=== PATIENT | female | born 1975 | race Caucasian/White ===

== ENCOUNTER 2024-02-24 08:56 | Outpatient (OUT) | payer OTHER, SELFPAY | END 2024-02-24 08:57 | disposition home or self-care (01) | LOC: SLEEP 08:56 | DX: G47.33 Obstructive sleep apnea (adult) (pediatric) (principal) | CPT/HCPCS: 95806 ==

== ENCOUNTER 2024-04-06 07:00 | Outpatient (OUT) | payer OTHER, SELFPAY ==
--- OUTSIDE RECORDS SUMMARY | 2024-04-06 16:45 | XMS_ITS | CCD ---
Author Organization [facility] Care Team Providers Care Guest Service Aide Name Role Phone Yee Weber Unavailable Unavailable Yee Weber Unavailable Unavailable Yee Weber Unavailable Unavailable Vero Dowd Unavailable MD Gabby Rivera Attending Provider MD [facility] Primary Care Provider MD Gabby Rivera Attending Provider MD [facility] Primary Care Provider Carolina King Primary [facility] Unavailable Gabby Rivera Attending Unavailable Gabby Rivera Admitting Unavailable Carolina King Primary [facility] Unavailable Gabby Rivera Attending Unavailable Gabby Rivera Admitting Unavailable WINSOME HANNAH Attending Unavailable WINSOME HANNAH Attending Unavailable WINSOME HANNAH Attending Unavailable WINSOME HANNAH Referring Unavailable NICOLE XIE Attending Unavailable WINSOME HANNAH Referring Unavailable WINSOME HANNAH Attending Unavailable Allergies Allergy Classification Reported Allergen(s) Allergy Type Date of Onset Reaction(s) Facility (1 source) Cephalexin Drug Allergy hives [facility] Other (3 sources) Clarithromycin Drug Allergy 3 vomiting [facility] (1 source) HYDROcodone / Ibuprofen Drug Allergy vomiting [facility] Other (1 source) Penicillin Drug Allergy vomiting [facility] Other (1 source) Bee Sting Drug allergy anaphylaxis [facility] Other (3 sources) HYDROcodone; Translations: [hydrocodone] Drug Allergy 3 redness of face [facility] (2 sources) Cephalexin; Translations: [cephalexin] Drug Allergy [address] [facility] (1 source) Clarithromycin Drug Allergy [address] [facility] Repository Medications Current Medications Medication Drug Class(es) Dates Sig (Normalized) Sig (Original) albuterol 0.83 mg/ml inhalation solution (6 sources) beta2-Adrenergic Agonist Start: 12-24-2022 Albuterol Sulfate Active 2.5 MG CNTNEBULIZ EVERY 4-6 HOURS December 24, 2022 1:00am Start: 12-24-2022 take 1 puff(s) by in halation every four to six hours Albuterol Sulfate Active 2 PUFF INHALATION EVERY 4-6 HOURS December 24, 2022 1:00am Start: 10-27-2022 Albuterol Sulf ate (2.5 MG/3ML) 0.083% 3 ml as needed Inhalation 4 times a day prn Oct, Active Start: 10-27-2022 take 2 puff(s) by in halation four times daily as needed Albuterol Sulfate HFA 108 (90 Base) MCG/ACT 2 puffs Inhalation 4 times a day prn Oct, Active benzonatate 100 mg oral capsule (1 source) Non-narcotic Antitussive Start: 10-27-2022 take 1 capsule by mouth every eight hours Tessalon Perles 100 MG 1 capsule as needed Orally Three times a day for 10 day(s) Oct, Active Elderberry Gummy (2 sources) Start: 12-24-2022 take 1 tablet by mouth once daily Elderberry Gummy Active 1 TAB PO Daily December 24, 2022 1:00am Start: 12-24-2022 take 1 tablet by valencia th once daily Elderberry Gummy Active 1 TAB PO Daily December 24, 2022 12:00am ibuprofen 600 mg oral tablet (1 source) Nonsteroidal Anti-inflammatory Drug Start: 01-07-2023 take 600 mg by mouth every six hours Ibuprofen Active 600 MG PO Q6H 30 January 07, 2023 12:00am predniSONE 20 mg oral tablet (1 source) Start: 10-27-2022 take 1 tablet by mouth every twelve hours predniSONE 20 MG 1 tablet Orally 2 times a day for 5 day(s) Oct, Active traMADol hydrochloride 50 mg oral tablet (1 source) Opioid Agonist Start: 01-07-2023 take 50 mg by mouth every six hours Tramadol Active 50 MG PO Q6H 30 7 January 07, 2023 12:00am Vitamin C Gummy (2 sources) Start: 12-24-2022 take 1 tablet by mouth once daily Vitamin C Gummy Active 1 TAB PO Daily December 24, 2022 1:00am Start: 12-24-2022 take 1 tablet by mouth once da gilmer Vitamin C Gummy Active 1 TAB PO Daily December 24, 2022 12:00am Problems Problem Classification Problem Date Documented Date Episodic/Chronic Chronic obstructive pulmonary disease and bronchiectasis (1 source) Bronchitis, not specified as acute or chronic Episodic Immunizations and screening for infectious disease (2 sources) Contact with and (suspected) exposure to other viral communicable diseases; Translations: [Contact with and (suspected) exposure to other viral communicable diseases] Episodic Menstrual disorders (1 source) Excessive and frequent menstruation with regular cycle; Translations: [Excessive and frequent menstruation with regular cycle] Onset: 01-07-2023 Chronic Other nervous system disorders (1 source) Acute postoperative pain; Translations: [Other acute postprocedural pain] 01-07-2023 Episodic Unclassified (1 source) Encounter for preprocedural laboratory examination; Translations: [Encounter for preprocedural laboratory examination] Onset: 12-24-2022 Results Test Name Value Interpretation Reference Range Facility BI MAMMOGRAM SCREENING TOMOS YDAVIDIS BILATERALon 02-14-2024 BI MAMMOGRAM SCREENING TOMOSYNTHESIS BILATERAL This is a summary report. The complete report is available in the patient's medical record. If you cannot access the medical record, please contact the sending organization for a detailed fax or copy. EXAMINATION: BI MAMMOGRAM SCREENING TOMOSYNTHESIS BILATERAL CLINICAL HISTORY:screening COMPARISON: December 26, 2022. RESULT: Digital mammography and 3D tomosynthesis of bilateral breasts was performed. Density: Scattered fibroglandular density [2] Overall appearance is stable. There is no suspicious mass, asymmetry, architectural distortion, or calcification IMPRESSION: BIRADS 1 - Negative Follow-up: Routine Screening Mamm Board Certified Radiologists. Accredited by the ACR and FDA. MAMMOGRAPHY IS VERY IMPORTANT TO YOUR HEALTH. THE [employer] GUIDELINES RECOMMEND THAT WOMEN 40 YEARS OF AGE AND OLDER SHOULD HAVE A MAMMOGRAM EVERY YEAR. A REMINDER LETTER WILL BE SENT AT THE APPROPRIATE TIME. THIS FACILITY UTILIZES A REMINDER SYSTEM TO ENSURE ALL PATIENTS RECEIVE REMINDER NOTIFICATIONS AT THE APPROPRIATE TIME BASED ON THE RECOMMENDATIONS OF THIS EXAM. THIS INCLUDES REMINDERS FOR ROUTINE SCREENING MAMMOGRAMS, DIAGNOSTIC MAMMOGRAMS IN WHICH THE PATIENT IS ASKED TO RETURN FOR ADDITIONAL VIEWS, OR OTHER BREAST IMAGING INTERVENTIONS WHEN APPROPRIATE. THE PATIENT WILL BE PLACED IN THE APPROPRIATE REMINDER SYSTEM INCLUDING A REMINDER AT THE APPROPRIATE TIME FOR ANY PENDING ADDITIONAL VIEWS. TRANSCRIBED BY: ELECTRONICALLY SIGNED BY: Harry Sy MD Normal Not Available HCG ( test) IA.ana d Ql (U)Ordered By: Mack Ortiz on 01-07-2023 HCG ( test) Ql (U) Negative [facility] HCG,Urineon 01-07-2023 Beta HCG ( test) Ql (U) Negative Normal [facility] Comment on above: Result Comment: PERF ORMED BY: [place] [address] PATHOLOGIST ASSOCIATE PROFESSOR OF LIBRARY MEDIA KAI HOPKINS M.D. Performed By: #### U HCG #### [address] 01-07-2023 L - -------- Specimen: [id number] Received: 01/07/23 Status: PHILIP Viraj Num: [id number] Spec Type: Surgical Subm Dr: GABBY RIVERA MD Tissues: A Uterus w/ or w/o tubes ovaries except neoplastic or prolap (UTERUS/FALLOLP Procedures: , Gross/Micro L5 -------- Age/ Patient Sex Location Account Attending Physician -------- Janeen Hermosillo 47/F [place] [id number] GABBY RIVERA MD -------- SPEC NUM: [id number] RECD: 01/07/23 STATUS: PHILIP ACKERMANAlee NUM: [id number] GASOTN: 01/07/[address] [facility] [address]: GABBY RIVERA MD ENTERED: 01/07/[address] [facility] [address]: LUBNA TYPE: Surgical DEPT: S ORDERED: , Gross/Micro L5 ORDERED: , Gross/Micro L5 Pathological Diagnosis Uterus and fallopian tubes, hysterectomy with bilateral salpingectomy: - Minimal chronic cervicitis. - Secretory phase endometrium. - Adenomyosis. - Subserosal leiomyomata of uterus. - Fallopian tube segments with changes consistent with ligation, paratubal cyst. Clinical Information Menorrhagia, dysmenorrhea Gross Description Received in formalin labeled with the patient's name, number and uterus and fallopian tubes is a 100 g 90.3 x 6.2 x 5.5 cm nodularly distorted uterus with attached bilateral fallopian tube stumps, detached fimbriae and a detached tubular structure. The uterine serosa is durand pink, focally umbilicated at the lower uterine segment. The exocervix is durand- pink with a central 0.7 cm patent os. The endocervix is durand red, glistening. There is a 0.5 cm linear umbilication in the anterior lower uterine segment consistent with site of previous . The durand-red endometrium averages 0.2 cm in thickness. The pink-durand, trabecular myometrium measures up to 2.0 cm in thickness and contains two sub-serosal nodules with white, whorled cut surfaces measuring up to 2.3 cm. Additionally there is intraparenchymal cystic change identified. The right fallopian tube stump measures 1.0 x 0.7 x 0.7 cm and has a dilated lumen consistent with previous ligation. The left fallopian tube stump measures 2.0 x 0.8 x 0.8 cm and has a dilated lumen containing clear, colorless -------- Specimen: [id number] Received: 01/07/23 Status: PHILIP Ackermanalee Num: [id number] Spec Type: Surgical Subm Dr: GABBY RIVERA MD Tissues: A Uterus w/ or w/o tubes ovaries except neoplastic or prolap (UTERUS/FALLOLP Procedures: , Gross/Micro L5 -------- Patient: Janeen Hermosillo [id number] (Continued) -------- Specimen: Received: 01/07/23 (Continued) Gross Description (Continued) Signed (signature on file) Tj Hudson MD 01/08/23 1339 -------- Specimen: Received: 01/07/23 Status: PHILIP Cali Num: [id number] Spec Type: Surgical Subm Dr: GABBY RIVERA MD Tissues: A Uterus w/ or w/o tubes ovaries except neoplastic or prolap (UTERUS/FALLOLP Procedures: , Gross/Micro L5 -------- Patient: Janeen Hermosillo [id number] (Continued) -------- Specimen: Received: 01/07/23 (Continued) Gross Description (Continued) fluid consistent with previous ligation. One detached fimbriated tissue measures 3.0 x 1.8 x 0.7 cm and has a patent lumen on cut section. The second detached fimbriated tissue measures 2.3 x 1.7 x 0.7 cm and appears to have a patent lumen on cut section. The durand-pink tubular detached tissue measures 4.5 x 0.7 x 0.7 cm and has an attached 1.0 cm smooth- walled, clear fluid-filled cyst. Sectioning reveals a patent lumen. Learning Program Manager sections are submitted in 11 cassettes as follows: A1 - Anterior cervix A2 - Posterior cervix A3 - Anterior lower uterine segment A4 - Anterior endomyometrium A5 - Posterior endomyometrium A6 - Subserosal nodules A7 - Right fallopian tube stump A8 - Left fallopian tube stump A9-A10 - Fimbriated tissues in their entirety A11 - Detached tubular tissue Microscopic Description 11 glass slides with H E stained material have been examined. The microscopic findings support the above pathologic diagnosis. CPT Codes 31099 ---- (more content not included)... Normal [facility] Basic Metabolic Panelon 03-0 -2022 Anion gap [Moles/Vol] 10.7 mmol/L Normal 6.0-15.0 [facility] Comment on above: Performed By: #### C BC, BMP #### [address] Calcium [Mass/Vol] 8.8 mg/dL Normal 8.2-10.2 [facility] Comment on above: Result Comment: PERF ORMED BY: [place] [address] PATHOLOGIST ASSOCIATE PROFESSOR OF LIBRARY MEDIA KAI HOPKINS M.D. Performed By: #### C BC, BMP #### [facility] [address] [place] [address] [place] Chloride [Moles/Vol] 107 mmol/L Normal 95-114 [facility] Comment on above: Performed By: #### C BC, BMP #### [facility] [address] [place] [address] [place] CO2 [Moles/Vol] 25.4 mmol/L Normal 22.0-30.0 [facility] Comment on above: Performed By: #### C BC, BMP #### [address] Creatinine [Mass/Vol] 0.64 mg/dL Normal 0.44-1.03 [facility] Comment on above: Performed By: #### C BC, BMP #### [place] [address] [place] Estimated GFR ( Radha > [address] [facility] Comment on above: Result Comment: GFR estimated reference range: According to KDOQI guidelines, <60 ml/min/1.73m2 is sufficient to diagnose a patient with chronic kidney disease. Performed By: #### C BC, BMP #### [address] Estimated GFR (Non- Am > [address] [facility] Comment on above: Performed By: #### C BC, BMP #### [address] Glucose [Mass/Vol] 80 mg/dL Normal 70-100 [facility] Comment on above: Result Comment: [place] om Glucose Reference Range is dependent on time and content of last meal. Glucose of more than 200 mg/dL in a nonstressed, ambulatory subject supports the diagnosis of Diabetes Mellitus. ADA recommended reference range Performed By: #### C BC, BMP #### [place] [address] [place] Potassium [Moles/Vol] 4.1 mmol/L Normal 3.5-5.1 [facility] Comment on above: Performed By: #### C BC, BMP #### [place] [address] [place] Sodium [Moles/Vol] 139 mmol/L Normal 136-146 [facility] Comment on above: Performed By: #### C BC, BMP #### [address] Urea nitrogen [Mass/Vol] 8 mg/dL Low 9-[address] [facility] Comment on above: Performed By: #### C BC, BMP #### [facility] [address] [place] [address] [place] Basophils Auto (Bld) [#/Vol] Ordered By: GABBY RIVERA on 12-24-2022 Basophils (Bld) [#/Vol] 0.0 10*3/uL 0.0-0.[address] [facility] Basophils/100 WBC Auto (Bld) Ordered By: GABBY RIVERA on 12-24-2022 Basophils/100 WBC (Bld) 0.7 % . [facility] Calcium [Mass/volume] in Ser um or PlasmaOrdered By: GABBY RIVERA on 12-24-2022 Calcium [Mass/Vol] 8.8 mg/dL 8.2-10.2 [facility] Carbon dioxide, total [Moles /volume] in Serum or PlasmaOrdered By: GABBY RIVERA on 12-24-2022 CO2 [Moles/Vol] 25.4 mmol/L 22.0-30.0 [facility] Chloride [Moles/volume] in S tiago or PlasmaOrdered By: GABBY RIVERA on 12-24-2022 Chloride [Moles/Vol] 107 mmol/L 95-114 [facility] Complete Blood Count Auto Di ffon 12-24-2022 Basophils (Bld) [#/Vol] 0.0 10*3/uL Normal 0.0-0.[address] [facility] Comment on above: Result Comment: PERF ORMED BY: [place] [address] PATHOLOGIST ASSOCIATE PROFESSOR OF LIBRARY MEDIA KAI HOPKINS M.D. Performed By: #### C BC, BMP #### [facility] [address] [place] [address] [place] Basophils/100 WBC (Bld) 0.7 % Normal . [facility] Comment on above: Performed By: #### C BC, BMP #### [facility] [address] [place] [address] [place] Eosinophils (Bld) [#/Vol] 0.2 10*3/uL Normal 0.0-0.[address] [facility] Comment on above: Performed By: #### C BC, BMP #### [facility] [address] Eosinophils/100 WBC (Bld) 2.8 % Normal . [facility] Comment on above: Performed By: #### C BC, BMP #### [facility] [address] Erythrocyte distribution width (RBC) [Ratio] 14.4 % Normal 11.9-15.[address] [facility] Comment on above: Performed By: #### C BC, BMP #### [address] Hematocrit (Bld) [Volume fraction] 43.0 % Normal 34.0-46.[address] [facility] Comment on above: Performed By: #### C BC, BMP #### [address] Hemoglobin (Bld) [Mass/Vol] 14.0 g/dL Normal 11.8-15.[address] [facility] Comment on above: Performed By: #### C BC, BMP #### [address] Lymphocytes (Bld) [#/Vol] 1.9 10*3/uL Normal 1.00-4.[address] [facility] Comment on above: Performed By: #### C BC, BMP #### [address] Lymphocytes/100 WBC (Bld) 25.7 % Normal . [facility] Comment on above: Performed By: #### C BC, BMP #### [place] [address] [place] MCH (RBC) [Entitic mass] 26.9 pg Normal 24.7-34.[address] [facility] Comment on above: Performed By: #### C BC, BMP #### [address] MCV (RBC) [Entitic vol] 82.8 fL Normal 80-100 [facility] Comment on above: Performed By: #### C BC, BMP #### [address] [place] [address] [facility] Mean Corpuscular HGB Conc 32.5 g/dL Normal 32.0-35.[address] [facility] Comment on above: Performed By: #### C BC, BMP #### [facility] [address] [place] [address] [place] Monocytes (Bld) [#/Vol] 0.7 10*3/uL Normal 0.0-0.[address] [facility] Comment on above: Performed By: #### C BC, BMP #### [facility] [address] [place] [address] [place] Monocytes/100 WBC (Bld) 9.8 % Normal . [facility] Comment on above: Performed By: #### C BC, BMP #### [address] Neutrophils (Bld) [#/Vol] 4.5 10*3/uL Normal 1.8-7.[address] [facility] Comment on above: Performed By: #### C BC, BMP #### [facility] [address] [place] [address] [place] Neutrophils/100 WBC (Bld) 61.0 % Normal . [facility] Comment on above: Performed By: #### C BC, BMP #### [address] NRBC% 0.1 /100{WBC} Normal 0-0.[address] [facility] Comment on above: Performed By: #### C BC, BMP #### [facility] [address] [place] [address] [place] Platelet mean volume (Bld) [Entitic vol] 7.9 fL Normal 6.3-10.[address] [facility] Comment on above: Performed By: #### C BC, BMP #### [facility] [address] [place] [id number] [place] Platelets (Bld) [#/Vol] 218 10*3/uL Normal 150-[address] [facility] Comment on above: Performed By: #### C BC, BMP #### [facility] [address] RBC (Bld) [#/Vol] 5.19 10*6/uL High 3.60-5.00 [facility] Comment on above: Performed By: #### C ARIELA, BMP #### [facility] [address] WBC (Bld) [#/Vol] 7.4 10*3/uL Normal 3.8-11.6 [facility] Comment on above: Performed By: #### C BC, BMP #### [facility] [address] Creatinine and Glomerular fi ltration rate.predicted panel (S/P/Bld)Ordered By: GABBY RIVERA on 12-24-2022 Creatinine [Mass/Vol] 0.64 mg/dL 0.44-1.03 [facility] ECG 12 lead ECGon 12-24-2022 ECG 12 lead ECG [facility] [place] [address] [place] [address] Electrocardiograph Report Signed Patient: Janeen Hermosillo MR#: [id number] : 1975 Acct:[id number] Age/Sex: 47 / F ADM Date: 12/24/22 Loc: Room: Type: [facility] Attending Dr: Gabby Rivera MD Ordering Provider: GABBY RIVERA MD Date of Service: 12/24/2204/12/1339 ECG/ECG 12 lead ECG: surgery 01/07/23 Copies to: Test Reason : Blood Pressure : / mmHG Vent. Rate : 080 BPM Atrial Rate : 080 BPM P-R Int : 126 ms QRS Dur : 082 ms QT Int : 362 ms P-R-T Axes : 028 033 026 degrees QTc Int : 417 ms Normal sinus rhythm Normal ECG No previous ECGs available Confirmed by PENNY FRANKS MD ([id number]) on 12/25/2022 3:34:23 PM Referred By: CHRISTINE RIVERA Electronically Signed By:PENNY FRANKS MD Transcribed By: MUS Signed By Penny Franks MD 0 12/25/[address] [facility] Eosinophils Auto (Bld) [#/Vo l]Ordered By: GABBY RIVERA on 12-24-2022 Eosinophils (Bld) [#/Vol] 0.2 10*3/uL 0.0-0.[address] [facility] Eosinophils/100 WBC Auto (Bl d)Ordered By: GABBY RIVERA on 12-24-2022 Eosinophils/100 WBC (Bld) 2.8 % . [facility] Erythrocyte distribution wid th Auto (RBC) [Ratio]Ordered By: GABBY RIVERA on 12-24-2022 Erythrocyte distribution width (RBC) [Ratio] 14.4 % 11.9-15.[address] [facility] Estimated glomerular filtrat ion rate (GFR) non- AmericanOrdered By: GABBY RIVERA on 12-24-2022 GFR/1.73 sq M.predicted among non-blacks MDRD (S/P/Bld) [Vol rate/Area] > 60 mL/Min [facility] Glucose [Mass/volume] in Ser um or PlasmaOrdered By: GABBY RIVERA on 12-24-2022 Glucose [Mass/Vol] 80 mg/dL 70-100 [facility] Comment on above: ADA recommended refe rence rangeRandom Glucose Reference Range is dependent on time and content of last meal. Glucose of more than 200 mg/dL in a nonstressed, ambulatory subject supports the diagnosis of Diabetes Mellitus. Hematocrit Auto (Bld) [Volum e fraction]Ordered By: GABBY RIVERA on 12-24-2022 Hematocrit (Bld) [Volume fraction] 43.0 % 34.0-46.[address] [facility] Hemoglobin [Mass/volume] in BloodOrdered By: GABBY RIVERA on 12-24-2022 Hemoglobin (Bld) [Mass/Vol] 14.0 g/dL 11.8-15.[address] [facility] Leukocytes [#/volume] correc juan for nucleated erythrocytes in Blood by Automated counOrdered By: GABBY RIVERA on 12-24-2022 WBC corrected for nucl RBC Auto (Bld) [#/Vol] 7.4 10*3/uL 3.8-11.[address] [facility] Lymphocytes Auto (Bld) [#/Vo l]Ordered By: GABBY RIVERA on 12-24-2022 Lymphocytes (Bld) [#/Vol] 1.9 10*3/uL 1.00-4.[address] [facility] Lymphocytes/100 WBC Auto (Bl d)Ordered By: GABBY RIVERA on 12-24-2022 Lymphocytes/100 WBC (Bld) 25.7 % . [facility] MCH Auto (RBC) [Entitic mass ]Ordered By: GABBY RIVERA on 12-24-2022 MCH (RBC) [Entitic mass] 26.9 pg 24.7-34.[address] [facility] MCHC Auto (RBC) [Mass/Vol]Or dered By: GABBY RIVERA on 12-24-2022 MCHC (RBC) [Mass/Vol] 32.5 g/dL 32.0-35.0 [facility] MCV Auto (RBC) [Entitic vol] Ordered By: GABBY RIVERA on 12-24-2022 MCV (RBC) [Entitic vol] 82.8 fL 80-100 [facility] Monocytes Auto (Bld) [#/Vol] Ordered By: GABBY RIVERA on 12-24-2022 Monocytes (Bld) [#/Vol] 0.7 10*3/uL 0.0-0.[address] [facility] Monocytes/100 WBC Auto (Bld) Ordered By: GABBY RIVERA on 12-24-2022 Monocytes/100 WBC (Bld) 9.8 % . [facility] Neutrophils Auto (Bld) [#/Vo l]Ordered By: GABBY RIVERA on 12-24-2022 Neutrophils (Bld) [#/Vol] 4.5 10*3/uL 1.8-7.[address] [facility] Neutrophils/100 WBC Auto (Bl d)Ordered By: GABBY RIVERA on 12-24-2022 Neutrophils/100 WBC (Bld) 61.0 % . [facility] No Panel InformationOrdered By: GABBY RIVERA on 12-24-2022 Estimated GFR () > 60 mL/Min [facility] Comment on above: GFR estimated refere nce range: According to KDOQI guidelines, <60 ml/min/1.73m2 is sufficient to diagnose a patient with chronic kidney disease. Pharmacy Creatinine Clearance (Chem N/A [facility] Nucleated erythrocytes [Pres ence] in Blood by Automated countOrdered By: GABBY RIVERA on 12-24-2022 Nucleated RBC Auto Ql (Bld) 0.1 /100{WBC} 0-0.[address] [facility] Platelet mean volume Auto (B ld) [Entitic vol]Ordered By: GABBY RIVERA on 12-24-2022 Platelet mean volume (Bld) [Entitic vol] 7.9 fL 6.3-10.[address] [facility] Platelets Auto (Bld) [#/Vol] Ordered By: GABBY RIVERA on 12-24-2022 Platelets (Bld) [#/Vol] 218 10*3/uL 150-[address] [facility] Potassium [Moles/volume] in Serum or PlasmaOrdered By: GABBY RIVERA on 12-24-2022 Potassium [Moles/Vol] 4.1 mmol/L 3.5-5.1 [facility] RBC Auto (Bld) [#/Vol]Ordere d By: GABBY RIVERA on 12-24-2022 RBC (Bld) [#/Vol] 5.19 10*6/uL 3.60-5.00 [facility] Serum or plasma anion gap de terminationOrdered By: GABBY RIVERA on 12-24-2022 Anion gap [Moles/Vol] 10.7 mmol/L 6.0-15.0 [facility] Sodium [Moles/volume] in Ser um or PlasmaOrdered By: GABBY RIVERA on 12-24-2022 Sodium [Moles/Vol] 139 mmol/L 136-146 [facility] Urea nitrogen [Mass/volume] in Serum or PlasmaOrdered By: GABBY RIVERA on 12-24-2022 Urea nitrogen [Mass/Vol] 8 mg/dL 9-[address] [facility] WBC Auto (Bld) [#/Vol]Ordere d By: GABBY RIVERA on 12-24-2022 WBC (Bld) [#/Vol] 7.4 10*3/uL 3.8-11.6 [facility] COVID + FLU Quick Testingon 10-27-2022 SARS-CoV-2 (COVID-19) RNA NICHOLAS+probe Ql (Unsp spec) Negative [facility] Other COVID + FLU Quick Testing Negative [facility] Other Diagnostic Mammogram, Unilat eral Left w/Pelon (3D)on 06-20-2022 Diagnostic Mammogram, Unilateral Left w/Pelon (3D) COMPARISON: June 11, 2022 TECHNIQUE: Additional views 2D and 3D Tomosynthesis of the left breast was performed. FINDINGS: On these additional views, no underlying nodule, mass, suspicious calcification or distortion is identified. IMPRESSION: BIRADS 3: Probably benign finding, short interval follow-up suggested. Recommend follow-up mammography in 6 months. Board Certified Radiologist. Accredited by the ACR and FDA. MAMMOGRAPHY IS VERY IMPORTANT TO YOUR HEALTH. THE CURRENT [employer] AND [employer] COMPREHENSIVE CANC[employer] NETWORK GUIDELINES RECOMMENDS ANNUAL MAMMOGRAPHY BEGINNING AT AGE 42 THIS FACILITY USES A REMINDER SYSTEM TO ENSURE ALL PATIENTS RECEIVE REMINDER NOTIFICATIONS AT THE APPROPRIATE TIME BASED ON THE RECOMMENDATIONS OF THIS EXAM. EXAM: LEFT BREAST US FINDINGS: Sonographic evaluation of the left breast was performed, correlation made with the same day mammogram and recent mammogram June 11, 2022. Examination demonstrates no suspicious cystic or solid mass lesions, distortion or ductal dilatation. Echotexture is normal for this age. IMPRESSION: BIRADS 3: Probably benign finding, short interval follow-up suggested. Recommend follow-up mammography in 6 months Report reported and signed by Harry Sy on 06/21/2022 0746 Normal [facility] Specialist US Breast Limited, Lefton Breast Limited, Left Please see the mammogram report from this same date Report reported and signed by Harry Sy on 06/21/2022 0744 Normal [facility] SCREENING MAMMOGRAM W/PELON, BILATERAL*on 06-11-2022 SCREENING MAMMOGRAM W/PELON, BILATERAL* COMPARISON: Dating back to October 01, 2019. TECHNIQUE: 2D and 3D Tomosynthesis of the right and left breasts was performed. FINDINGS: Breast composition demonstrates scattered fibroglandular densities. Right breast: Stable, unremarkable. No suspicious microcalcifications, dominant mass lesions, or distortion is present. Left breast: Three left central periareolar and central mid depth asymmetries, 8-9mm most conspicuous on the CC view, no clearly seen on the MLO projection. (BTO LCC image 39 of 78, 26 of 78, 37 of 78). No significant axillary lymphadenopathy. IMPRESSION: BI-RADS 0-Recommend ultrasound attention directed to the left central, central periareolar region and additional spot compression views if benign cyst formation does not account for these three findings. COMMENT: Asymmetry: Visible on only one projection. Asymmetries that turn machine operator to be summation artifact are benign (BI-RADS 2). The BI-RADS [place] offers guidance regarding the other categories of asymmetries. FOCAL ASYMMETRY: Visible on two projections, involves less than one quadrant, lack convex-outwards orders or is interspersed with fat. A solitary focal asymmetry (without architectural distortion, calcification, or underlying mass identified on diagnostic mammography and ultrasound) is assessed as BI-RADS 3 (likely benign). Developing Asymmetry: Focal asymmetry that is new, larger, or more conspicuous than on prior examinations. A developing asymmetry, unless shown to be characteristically benign, such as a cyst on ultrasound, is assessed BI-RADS 4 (suspicious). An exception would be if there is a clear benign explanation, such as recent surgery, trauma or infection at that site. Global Asymmetry: Visible on two projections, involves more than one quadrant. Global asymmetry, in the absence of palpable correlate , is assessed BI-RADS 2 (benign) IMPRESSION: Board Certified Radiologist. Accredited by the ACR and FDA. MAMMOGRAPHY IS VERY IMPORTANT TO YOUR HEALTH. THE CURRENT [employer] AND NATIONAL COMPREHENSIVE CANCER NETWORK GUIDELINES RECOMMENDS ANNUAL MAMMOGRAPHY BEGINNING AT AGE 42 THIS FACILITY USES A REMINDER SYSTEM TO ENSURE ALL PATIENTS RECEIVE REMINDER NOTIFICATIONS AT THE APPROPRIATE TIME BASED ON THE RECOMMENDATIONS OF THIS EXAM. Report reported and signed by Harry Sy on 06/11/2022 1514 Normal [facility] Labor Arbitrator Potassiumon 01-26-2022 Potassium [Moles/Vol] 4.3 mmol/L Normal 3.5-5.5 Kori candelario [place] Labor Arbitrator Comment on above: Performed By: #### K , TSH reflex FT4 #### [facility] [address] [place], [place] [id number] TSH w/ Reflex to Free T4on 0 01-26-2022 TSH 2.570 uIU/mL Normal 0.400-4.500 [facility] Labor Arbitrator Comment on above: Performed By: #### K , TSH reflex FT4 #### [facility] [address] [place], [place] [id number] Complete Blood Count with Au to Diffon 01-24-2022 Basophils (Bld) [#/Vol] 0.05 10*3/uL Normal 0.00-0.20 [facility] Specialist Comment on above: Performed By: #### C MP, CBCAD #### [facility] [address], [place] [id number] Basophils/100 WBC (Bld) 0.7 % Normal [facility] Comment on above: Performed By: #### C MP, CBCAD #### [facility] [address], [place] [id number] Eosinophils (Bld) [#/Vol] 0.18 10*3/uL Normal 0.02-0.50 [facility] Specialist Comment on above: Performed By: #### C MP, CBCAD #### [facility] [address], [place] [id number] Eosinophils/100 WBC (Bld) 2.4 % Normal [facility] Specialist Comment on above: Performed By: #### C MP, CBCAD #### [facility] [address], [place] [id number] Erythrocyte distribution width (RBC) [Ratio] 13.2 % Normal 11.0-15.0 [facility] Specialist Comment on above: Performed By: #### C MP, CBCAD #### [facility] [address], [place] [id number] Hematocrit (Bld) [Volume fraction] 40.1 % Normal 35.0-47.0 [facility] Specialist Comment on above: Performed By: #### C MP, CBCAD #### [facility] [address], [place] [id number] Hemoglobin (Bld) [Mass/Vol] 12.6 g/dL Normal 11.6-15.5 [facility] Specialist Comment on above: Performed By: #### C MP, CBCAD #### [facility] [address], [place] [id number] Lymphocytes (Bld) [#/Vol] 2.0 10*3/uL Normal 0.9-3.9 [facility] Comment on above: Performed By: #### C MP, CBCAD #### [facility] [address], [place] [id number] Lymphocytes/100 WBC (Bld) 26.1 % Normal [facility] Comment on above: Performed By: #### C MP, CBCAD #### [facility] [address], [place] [id number] MCH (RBC) [Entitic mass] 26.8 pg Low 27.0-33.0 [facility] Comment on above: Performed By: #### C MP, CBCAD #### [facility] [address], [place] [id number] MCHC (RBC) [Mass/Vol] 31.4 g/dL Low 32.0-36.0 [facility] Comment on above: Performed By: #### C MP, CBCAD #### [facility] [address], [place] [id number] MCV (RBC) [Entitic vol] 85 fL Normal 80-100 [facility] Comment on above: Performed By: #### C MP, CBCAD #### [facility] [address], [place] [id number] Monocytes (Bld) [#/Vol] 0.7 10*3/uL Normal 0.2-0.9 [facility] Comment on above: Performed By: #### C MP, CBCAD #### [facility] [address], [place] [id number] Monocytes/100 WBC (Bld) 8.7 % Normal N [facility] Comment on above: Performed By: #### C MP, CBCAD #### [facility] [address], [place] [id number] Neutrophils (Bld) [#/Vol] 4.6 10*3/uL Normal 1.5-7.8 [facility] Comment on above: Performed By: #### C MP, CBCAD #### [facility] [address], [place] [id number] Neutrophils/100 WBC (Bld) 61.3 % Normal [facility] Comment on above: Performed By: #### C MP, CBCAD #### [facility] [address], [place] [id number] Platelet mean volume (Bld) [Entitic vol] 11.20 fL Normal 7.50-12.50 [facility] Comment on above: Performed By: #### C MP, CBCAD #### [facility] [address], [place] [id number] Platelets (Bld) [#/Vol] 256 10*3/uL Normal 140-400 [facility] Comment on above: Performed By: #### C MP, CBCAD #### [facility] [address], [place] [id number] RBC (Bld) [#/Vol] 4.71 10*6/uL Normal 3.90-5.20 [facility] Specialist Comment on above: Performed By: #### C MP, CBCAD #### [facility] [address], [place] [id number] RDW-SD 40.7 fL Normal 37.0-50.0 [facility] Specialist Comment on above: Performed By: #### C MP, CBCAD #### [facility] [address], [place] [id number] WBC (Bld) [#/Vol] 7.5 10*3/uL Normal 3.8-11.0 [facility] Specialist Comment on above: Performed By: #### C MP, CBCAD #### [facility] [address], [place] [id number] Comprehensive Metabolic Pane blaire 01-24-2022 Albumin [Mass/Vol] 4.2 g/dL Normal 3.6-5.1 [facility] Labor Arbitrator Comment on above: Performed By: #### C MP, CBCAD #### [facility] [address], [place] [id number] Albumin/Globulin [Mass ratio] 1.7 {ratio} Normal 1.0-2.5 [facility] Specialist Comment on above: Performed By: #### C MP, CBCAD #### [facility] [address], [place] [id number] ALP [Catalytic activity/Vol] 86 U/L Normal 35-119 [facility] Comment on above: Performed By: #### C MP, CBCAD #### [facility] [address] [place] [id number] ALT [Catalytic activity/Vol] 13 U/L Normal 6-33 [facility] Comment on above: Result Comment: 09/20 Female reference range changed. Performed By: #### C MP, CBCAD #### [facility] [address] [facility] [place] [id number] Anion gap [Moles/Vol] 15 mmol/L Normal 12-20 [facility] Comment on above: Result Comment: Effe ctive 10/26/2019 reference range changed. Performed By: #### C MP, CBCAD #### [facility] [address] [facility] [place] [id number] AST [Catalytic activity/Vol] 14 U/L Normal 9-34 [facility] Comment on above: Performed By: #### C MP, CBCAD #### [facility] [address] [facility] [place] [id number] BUN/CREA 19 Ratio Normal 6-22 [facility] Comment on above: Performed By: #### C MP, CBCAD #### [facility] [address] [facility] [place] [id number] Calcium [Mass/Vol] 8.9 mg/dL Normal 8.6-10.2 [facility] Comment on above: Performed By: #### C MP, CBCAD #### [facility] [address] [facility] [place] [id number] Chloride [Moles/Vol] 107 mmol/L Normal 98-[address] [facility] Comment on above: Performed By: #### C MP, CBCAD #### [facility] [address] [place] [id number] CO2 [Moles/Vol] 25 mmol/L Normal 20-31 [facility] Comment on above: Performed By: #### C MP, CBCAD #### [facility] [address] [facility] [place] [id number] Creatinine [Mass/Vol] 0.7 mg/dL Normal 0.6-1.4 [facility] [place] [facility] Arbitrator Comment on above: Performed By: #### C MP, CBCAD #### [facility] [address], [place] [id number] eGFRAA 116 mL/min/1.73m2 Normal >60 [facility] Specialist Comment on above: Performed By: #### C MP, CBCAD #### [facility] [address], [place] [id number] eGFRNAA 96 mL/min/1.73m2 Normal >60 [facility] Comment on above: Performed By: #### C MP, CBCAD #### [facility] [address], [place] [id number] Globulin (S) [Mass/Vol] 2.5 g/dL Normal 1.9-3.7 [facility] Comment on above: Performed By: #### C MP, CBCAD #### [facility] [address], [place] [id number] Glucose [Mass/Vol] 102 mg/dL High 65-99 [facility] Labor Arbitrator Comment on above: Result Comment: For FASTING Glucose --- ADA reference ranges: Normal 65-99 mg/dl Prediabetes 100-125 Diabetes >/= 126 Performed By: #### C MP, CBCAD #### [facility] [address], [place] [id number] Potassium [Moles/Vol] 4.1 mmol/L Normal 3.5-5.5 [facility] Comment on above: Performed By: #### C MP, CBCAD #### [facility] [address], [place] [id number] Protein [Mass/Vol] 6.7 g/dL Normal 6.1-8.1 [facility] Labor Arbitrator Comment on above: Performed By: #### C MP, CBCAD #### [facility] [address], [place] [id number] Sodium [Moles/Vol] 142 mmol/L Normal 135-146 [facility] Labor Arbitrator Comment on above: Performed By: #### C MP, CBCAD #### [facility] [address], [place] [id number] TBIL <0.3 Normal [facility] [place] [facility] Arbitrator Comment on above: Performed By: #### C MP, CBCAD #### [facility] [address], [place] [id number] Urea nitrogen [Mass/Vol] 13 mg/dL Normal 7-25 [facility] Labor Arbitrator Comment on above: Performed By: #### C MP, CBCAD #### [facility] [address], [place] [id number] Q - B-TYPE NATRIURETIC (BNP) on 01-24-2022 Natriuretic peptide B (Bld) [Mass/Vol] 8 pg/mL Normal <100 [facility] Labor Arbitrator Comment on above: Order Comment: [facility] Testing performed at: [place], [employer] [facility] [facility], [address] [facility], [address] [place] [address], [address], Business Editor: Ridge William MD [facility] Collection Date/Time: [id number] [facility] Results Received Date/Time: [facility] Reported Date/Time: FASTING: NO Result Comment: BNP levels increase with age in the general population with the highest values seen in individuals greater than 75 years of age. Reference: J. Am. Gaston. Cardiol. 2002; 40:976-982. Performed By: #### 3 [id number] #### [facility] [address] [place] [address] XR Chest 2 Views*on 01-25-20 22 XR Chest 2 Views* HISTORY: SOB FINDINGS: No acute cardiac or pulmonary disease is identified. No worrisome mass lesions or infiltrates are seen. No pulmonary edema or pneumothorax is present. Cardiac silhouette size is normal. Skeletal structures are unremarkable. IMPRESSION: No acute cardiac or pulmonary disease. Report reported and signed by Harry Sy on 01/24/2022 1625 Normal [facility] Labor Arbitrator Coding Summary.on 07-10-2017 Coding Summary. CODING DATE: 07/10/[address] [facility] STATUS: Home (Routine DC) PAYOR: Commercial Insurance ADMIT DX: REASON FOR VISIT DX: Z01.419 Encounter for gynecological examination (general) (routine) without abnormal findings FINAL DX: PRINCIPAL: Z01.419 Encounter for gynecological examination (general) (routine) without abnormal findings SECONDARY: PROCEDURES DOCTOR NAME DATE NOTE: The code number assigned matches the documented diagnosis and / or procedure in the patient's chart. However, the narrative phrase printed from the coding software may appear abbreviated, or result in slightly different terminology. Revised Coded By: Rhonda Burnett Revised Date Saved: 07/08/2017 03:57 pm Normal [facility] IGP W/hpv Rfx [id number] 07-09 Supervisor [place] (cervix/vaginal) Comment Invalid Interpretation Code [facility] Comment on above: Result Comment: Sonia Canchola, Center Manager (ASCP) Performed By: #### 1 [id number] ####[facility] [address] [place] [address] Cytology report (cervical/vaginal) Comment Invalid Interpretation Code [facility] Comment on above: Result Comment: This liquid based ThinPrep(R) pap test was screened with theuse of an image guided system. Performed By: #### 1 [id number] ####[place] [address] Diagnosis: Comment Invalid Interpretation Code [facility] Comment on above: Result Comment: NEGA TIVE FOR INTRAEPITHELIAL LESION AND MALIGNANCY. Performed By: #### 1 [id number] ####[facility] [address] [place] [address] HPV Indication Comment Invalid Interpretation Code [facility] Comment on above: Result Comment: The HPV DNA reflex criteria were not met with this specimen resulttherefore, no HPV testing was performed.No. of containers..01 ThinPrep VialPerformed at: [facility] [place] [id number] MD Annmarie Interiano Performed By: #### 1 [id number] ####[facility] [address] [place] [address] Note Comment Invalid Interpretation Code [facility] Comment on above: Result Comment: The Pap smear is a screening test designed to aid in the detection ofpremalignant and malignant conditions of the uterine cervix. It is not adiagnostic procedure and should not be used as the sole means of detectingcervical cancer. Both false-positive and false-negative reports do occur. Performed By: #### 1 [id number] ####[facility] [address] [place] [address] Statement of adequacy (cervix/vaginal) Comment Invalid Interpretation Code [facility] Comment on above: Result Comment: Sati sfactory for evaluation. Endocervical and/or squamous metaplasticcells (endocervical component) are present. Performed By: #### 1 [id number] ####[facility] [address] [place] [address] Vital Signs Date Time Vital Sign Value Performing Clinician Facility 01-07-2023 18:22-0400 Diastolic blood pressure 74 mm[Hg] MD Carolina King Work Phone: [facility] 01-07-2023 18:22-0400 Heart rate 105 /min MD Carolina King Work Phone: [facility] 01-07-2023 18:22-0400 SaO2% (BldA) [Mass fraction] 94 % MD Carolina King Work Phone: [facility] 01-07-2023 18:22-0400 Systolic blood pressure 150 mm[Hg] MD Carolina King Work Phone: [facility] 01-07-2023 17:31-0400 Respiratory rate 16 /min MD Carolina King Work Phone: [facility] 01-07-2023 16:14-0400 Body temperature 98.2 [degF] MD Carolina King Work Phone: [facility] 01-07-2023 13:50-0400 Inhaled oxygen flow rate 2 L/min MD Carolina King Work Phone: [facility] 01-07-2023 07:18-0400 Body height 154.94 cm MD Carolina King Work Phone: [facility] 01-07-2023 07:18-0400 Body mass index (BMI) [Ratio] 47 kg/m2 MD Carolina King Work Phone: [facility] 01-07-2023 07:18-0400 Body weight 113 kg MD Carolina King Work Phone: [facility] 10-27-2022 14:00-0500 Body height 152.4 cm Vero Dowd Other [facility] Other 10-27-2022 14:00-0500 Body mass index (BMI) [Ratio] 50.77 kg/m2 Vero Grimmmond Other [facility] Other 10-27-2022 14:00-0500 Body temperature 98 [degF] Vero Dowd Other [facility] Other 10-27-2022 14:00-0500 Body weight 117.94 kg Vero Dowd Other [facility] Other 10-27-2022 14:00-0500 Diastolic blood pressure 78 mm[Hg] Vero Noemí Other [facility] Other 10-27-2022 14:00-0500 Respiratory rate 20 /min Vero Grimmmond Other [facility] Other 10-27-2022 14:00-0500 SaO2% (BldA) [Mass fraction] 99 % Vero Grimmmond Other [facility] Other 10-27-2022 14:00-0500 Systolic blood pressure 132 mm[Hg] Vero Noemí Other [facility] Other Encounters Encounter Date Encounter Type Care Provider Facility Start: 03-09-2024 End: 03-09-2024 ambulatory WINSOME HANNAH Not Available Start: 02-27-2024 End: 02-27-2024 ambulatory NICOLE XIE Not Available Start: 02-14-2024 End: 02-15-2024 ambulatory WINSOME HANNAH Not Available Start: 02-10-2024 End: 02-10-2024 ambulatory WINSOME HANNAH Not Available Start: 01-28-2024 End: 01-28-2024 ambulatory WINSOME HANNAH Not Available Start: 01-01-2024 End: 01-01-2024 ambulatory WINSOME HANNAH Not Available Start: 01-07-2023 End: 01-07-2023 ambulatory Carolina King Facility:[facility] Start: 01-07-2023 End: 01-07-2023 Admission to same day surgery center MD Carolina King Work Phone: [facility] [place] Start: 01-07-2023 End: 01-07-2023 ambulatory MD Carolina King Work Phone: [facility] Work Phone: Start: 12-24-2022 End: 12-24-2022 ambulatory Carolina King Facility:[facility] Start: 12-24-2022 End: 12-24-2022 ambulatory MD Carolina King Work Phone: [facility] Work Phone: Start: 12-24-2022 End: 12-24-2022 Patient encounter procedure MD Carolina King Work Phone: [facility] Work Phone: Start: 10-27-2022 End: 10-27-2022 ambulatory Vero Dowd Other [facility] Other Start: 10-27-2022 Office outpatient ne w 20 minutes Vero Dowd [facility] Start: 07-04-2017 End: 07-05-2017 Ambulatory Yee Weber Facility:[facility] Procedures Date Procedure Procedure Detail Performing Clinician Start: 01-07-2023 Total hysterectomy v ia vaginal approach MD Carolina King Work Phone: Plan of Treatment Date Care Activity Detail Author Start: 01-07-2023 Hospital admission [facility] Start: 01-07-[address] [facility] Patient referral [facility] Work Phone: Immunizations Immunization Date Immunization Notes Care Provider Fa amelia 05-03-2021 COVID-19 mRNA-1273 (Kerri) MD Carolina King Work Phone: [facility] 04-05-2021 COVID-19 mRNA-1273 (Kerri) MD Carolina King Work Phone: [facility] Payers Date Payer Category Payer Self-pay 2022 Unknown [id number] 2.16.8 [id number] 2017 Unknown [id number] 1975 Unknown [id number] 2.16.84 [id number] 1975 Unknown [id number] 2.16.84 [id number] 1977 Unknown [id number] 2.16.84 [id number] 1977 Unknown [id number] 2.16.84 [id number] 1977 Unknown [id number] 2.16.84 [id number] 1977 Unknown [id number] 2.16.84 [id number] Unknown [id number] 2.16.8 [id number] Unknown [id number] 2.16.8 [id number] Social History Date Type Detail Facility Sex Assigned At [facility] Other Start: 12-24-2022 End: 01-07-2023 Tobacco smoking status NHIS Never smoked tobacco (finding) [facility] Start: 1975 Sex Assigned At Female F [facility] Goals Date Patient Goal Desired Activity /State Functional Status Date Assessment Result Facility 01-07-2023 Functional status Functional Sta tus Comment s/p [facility] Work Phone: Evaluation note 10-27-2022 Note Date & Type Note Facility 10-27-2022 Evaluation note Encounter Date Diagnosis Assessment Notes Oct, Contact with and (suspected) exposure to other viral communicable diseases (ICD-10 - Z20.828) Oct, Bronchitis (ICD-10 - J40) Acute bronchitis material was printed Drink plenty fluids, get plenty of rest. Take the prednisone as prescribed until gone. Use the albuterol inhaler and the albuterol nebulizer treatment as prescribed as needed for cough or shortness of breath. Take the Tessalon Perles as prescribed as needed for cough. Follow-up with your family physician if no improvement in 2 to 3 days [facility] Other Evaluation note Note Date & Type Note Facility Evaluation note No assessment information availa [facility] Work Phone: History general Narrative - Reported Note Date & Type Note Facility History general Narrative - Reported Type Surgical History wisdom teeth Surgical History x2 Surgical History tubal ligation Surgical History endometrial ablasion Surgical History PE tubes Surgical History adenoidectomy [facility] Other Hospital Discharge instructions Note Date & Type Note Facility Hospital Discharge instructions Additional Instructions DISCHARGE INSTRUCTIONS FOR HYSTERECTOMY (TVH, LAVH, TLH) -During your time at home until your first office appointment we recommend that you assume the same type of activities that you have been doing while in the hospital. You may ride in the car unless otherwise specifically told not to. Unless specifically otherwise stated, generally you may drive the car when you feel strong enough to make emergency manuevers as needed. -FOR PAIN CONTROL: I want you to take acetaminophen 1000 mg every 6 hours. I also want you to take ibuprofen 600mg every 6 hours. BUT, I want you to alternate them every 3 hours. I have also provided a prescription for tramadol 50mg. You may take this every 6hours if needed, in addition to acetaminophen and ibuprofen. -You may walk up and down stairs. At first take one step at a time -- one step - stop, one step - stop, one step - stop. -You may do light housework, such as dusting, dishes, and cooking. -From your first office visit until the six week postoperative examination we recommend that you do not do any heavy lifting or straining, that you do not do any vacuuming, mopping, or sweeping. -We advise that you do not lift any heavy grocery bags from the cart to the car or from the car home. -We recommend that you do not do any yard work such as shoveling of snow, raking of leaves, cutting grass or gardening. -We recommend that you do not make beds or lift mattresses to change fitted sheets. -Light bleeding is normal for the first 4 weeks (i.e. changing panty liner 3 - 4 times a day.) Call me or go to the Emergency Room for heavy bleeding (soaking a maxipad every hour for 4 hours.) -Call the office or go to the Emergency Room if unable to reach me for fever, chills, worsening pain, persistent nausea/vomiting. -Call the office or go to the Emergency Room for shortness of breath, pain in your calfs or unusual swelling in your legs. -Showers are allowed until the vaginal drainage stops, then tub baths are generally acceptable unless otherwise specifically denied. -You will be advised at your first office visit when you may resume intercourse. This will be dependent upon the type of surgery performed. -We recommend that you use home remedies such as aspirin, Tylenol, Motrin for pain, Milk of Magnesia for laxative. If these preparations do not take care of your problem we want to be called and notified of your distress. -Please get prescriptions filled upon leaving the hospital and follow directions as outlined. Please note the refill limitations on the prescription. -If you have any specific questions not covered by these instructions please feel free to contact myself or one of the nurses who will answer your questions with my recommendations. -These instructions are intended to be a guideline for your postoperative care and recovery and are by no means intended to be totally complete. FOLLOW UP -[Please call the office at ([phone]) to make follow appointment before leaving the hospital]. -[2 Weeks] [ ] [facility] Work Phone: Summary Purpose Family History No Family History Records Found Relationship Condition Age at Onset Recorded Date/T jeaneth father Abnormality of breathing Unknown Not Specified Heart murmur Unknown Atrial fibrillation Unknown Advance Directives No Advanced Directives Records Found Advance Directive Response Recorded Date/ Time Advance Directives No December 24 1:31pm Advance Directive Response Recorded Date/ Time Advance Directives No December 24 2:31pm Chief Complaint and Reason for Visit Chief Complaint Menorrhagia, Dysmeno rrhea Chief Complaint Menorrhagia, Dysmeno rrhea Menorrhagia, Dysmenorrhea. Additional Source Comments INFORMATION SOURCE (unrecogn ized section and content) DATE CREATED AUTHOR 04/16/2018 Reese [facility] DATE CREATED AUTHOR AUTHOR'S ORGANIZ ATION 06/21/2022 [facility] DATE CREATED AUTHOR AUTHOR'S ORGANIZ ATION 02/11/2023 [facility] DATE CREATED AUTHOR AUTHOR'S ORGANIZ ATION 03/11/2024 [facility] EPIC REASON FOR VISIT (unrecogniz ed section and content) COUGH, CONGESTION Care Teams (unrecognized sec tion and content) Team Status: Active Member Role Status Dates Carolina King MD Primary Care Provider Active Team Status: Inactive Member Role Status Dates Gabby Rivera MD Attending Provider Active Carolina King MD Primary Care Provider Active Goals (unrecognized section and content) Goals may be documented in a n alternate section FOR RECORDS PERTAINING TO PATIENTS WHO ARE OR HAVE BEEN ENROLLED IN A CHEMICAL DEPENDENCY/SUBSTANCEABUSE PROGRAM, SOME INFORMATION MAY BE OMITTED. This clinical summary was aggregated from multiple sources. Caution should be exercised in using it in the provision of clinical care. This summary normalizes information from multiple sources, and as a consequence, information in this document may materially change the coding, format and clinical context of patient data. In addition, data may be omitted in some cases. CLINICAL DECISIONS SHOULD BE BASED ON THE PRIMARY CLINICAL RECORDS. [facility] [employer] [facility]. provides no warranty or guarantee of the accuracy or completeness of information in this document.
== END 2024-04-06 07:01 | disposition home or self-care (01) ==
LOC: SLEEP 16:25
PROVIDERS: PCP Nurse Practitioner Family; Visit Provider Nurse Practitioner Family
DX: G47.33 Obstructive sleep apnea (adult) (pediatric) (principal)
CPT/HCPCS: 95811